=== PATIENT | male | born 1965 | race Native Hawaiian/Other Pacific Islander ===

== ENCOUNTER 2022-05-28 08:18 | Outpatient (CLI) | payer OTHER | END 2022-05-28 21:52 | disposition home or self-care (01) | LOC: RAD 08:18 | PROVIDERS: ATTEND Internal Medicine | DX: Z02.71 Encounter for disability determination (principal); M54.2 Cervicalgia; M54.89 Other dorsalgia ==

== ENCOUNTER 2022-12-17 09:30 | Outpatient (CLI) | payer OTHER | END 2022-12-17 18:57 | disposition home or self-care (01) | LOC: RAD 09:30 | PROVIDERS: ATTEND Internal Medicine | DX: Z02.71 Encounter for disability determination (principal) ==